=== PATIENT | female | born 1955 | race Hispanic/Latino ===

== ENCOUNTER → 2016-11-14 | Outpatient (CLI) | payer OTHER | END | disposition home or self-care (01) | LOC: RAD 09:54 | DX: Z02.71 Encounter for disability determination (principal) | CPT/HCPCS: 73560 ==

== ENCOUNTER → 2016-12-26 | Outpatient (CLI) | payer OTHER | END | disposition home or self-care (01) | LOC: RAD 09:31 | DX: Z02.71 Encounter for disability determination (principal) | CPT/HCPCS: 73560 ==